=== PATIENT | female | born 1940 | race Caucasian/White ===

== ENCOUNTER → 2016-11-21 | Outpatient (CLI) | payer OTHER ==
--- NOTE | ~2016-11-21 | MR17 ---
[facility] A Service of [facility] RADIOLOGY TEXT RESULTS PATIENT: REYNA LOUISE LOCATION: [facility] : 44 UNIT #: [id number] AGE: [address]: Noam Gandhi MD SEX: F ORDER DR: [id number] [address] [address] [id number] O MR#: [id number] Acc #: [id number] NAME: REYNA LOUISE : 1940 SEX: F STUDY DATE/TIME: 11/21/2016 13:28 UNIT: [facility] ROOM: STUDY DESCRIPTION: MR Brain WWo Contrast Attending Physician: Noam Gandhi M.D. Referring Physician: Noam Gandhi M.D. Ordering Physician: Noam Gandhi M.D. Primary Care Physician: Anders Lainez M.D. MRI CENTER REPORT This report is preliminary unless electronic signature is present. EXAM MRI of the brain with and without contrast dated 11/21/2016. COMPARISON MRI brain with and without contrast dated 05/17/2016. HISTORY Follow up meningioma. Patient is still unsteady on her feet for about 6 months. FINDINGS Multisequence, multiplanar imaging of the brain was obtained with and without contrast. GFR measured 52. 14 mL of MultiHance was administered intravenously. Redemonstrated is a homogeneously enhancing dural-based 2.6 x 3.0 x 2.7-cm mass abutting the left transverse sinus and adjacent sigmoid sinus. It is unclear if it is narrowing it. The sinus medial and lateral to this region appears to be widely patent. The appearance is stable. It does not appear to have significantly changed when compared to the study from earlier this year. No other secondary lesions are seen. There is no acute stroke, hydrocephalus, hemorrhage or midline shift. Mild increased T2 signal is noted in bilateral uncus and adjacent hippocampal formation, which is of uncertain clinical significance. It is not well correlated in all the other sequences and it is relatively stable. There is no corresponding corroborative history of herpes or other processes. Punctate, tiny, few nonspecific hyperintense T2-signal lesions are seen. S-shaped nasal septal deviation is noted. Imaged orbits with the ocular structures are unremarkable. Minimal right and mild left mastoid mucosal thickening is seen. IMPRESSION 1. 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 Stable. STS. [facility] A Service of [facility] RADIOLOGY TEXT RESULTS PATIENT: REYNA LOUISE LOCATION: [facility] : 44 UNIT #: [id number] AGE: [address]: Noam Gandhi MD SEX: F ORDER DR: 2. The mass causes mass effect on the nearby left transverse sinus and close to the adjacent left sigmoid sinus without any significant abnormality in the dural sinus medial and lateral to this region. Stable. 3. Faint increased T2 signal is noted in bilateral uncus and hippocampal formations. It is of uncertain clinical significance as there is no corresponding history. It could be related to recent seizures. Infectious diseases like herpes can be in the differential consideration, but it does not enhance. Tumor is also less likely without enhancement. Other conditions like limbic encephalitis are in the differential diagnosis. It has not worsened in the last 6 months and it is a chronic finding. Dictated by... Sidra Jackson M.D. THIS IS AN ELECTRONICALLY VERIFIED REPORT Sidra Jackson M.D. at 11/23/2016 2:13 PM CPR/psc TD: 11/23/2016 02:14 JOB #: [id number] MRI CENTER REPORT Page 1 of 1
[2016-11-21 16:15] LABS: POC - CREATININE 1.1 mg/dL (0.44-1.03)
== END | disposition home or self-care (01) ==
LOC: SMRI 13:02
PROVIDERS: Neurological Surgery
DX: G93.9 Disorder of brain, unspecified (principal)
CPT/HCPCS: 70553; 82565; A9581